=== PATIENT | female | born 1990 | race Caucasian/White ===

== ENCOUNTER 2022-07-12 10:56 | Outpatient (CLI) | payer MEDICAID, SELFPAY ==
--- NOTE | 2022-07-12 11:07 | US_ITS ---
WS: [id number] OBSTETRICAL ULTRASOUND COMPLETE HISTORY: NORMAL 1ST PREG IN 2ND TRIMESTER COMPARISON: None available. Single intrauterine gestation in Cephalic presentation. Cervix is Closed and normal length. Cervical length is 5.7 cm. Normal amount of amniotic fluid surrounds the fetus. Placenta: Anterior, no previa or abruption. Placenta grade 1 Heart: 141 BPM. Four chambers are identified. RIGHT and LEFT outflow tracts are unremarkable. Anatomy: Intracranial structures and spine are normal. kidneys, stomach and urinary bladd er are unremarkable. Abdominal wall, three-vessel cord and cord insertion site are normal. 4 extremities are present. profile: Unremarkable. Gender: Female. measurements: BPD = 4.8 cm = 20w4d; HC = 19.0 cm = 21w2d; AC = 16.0 cm = 21w1d; FL = 3.2 cm = 20w0d; EFW: 371 g. Not available. Biometry is internally concordant. AGA by ultrasound: 20w5d YOUSUF by ultrasound: 11/24/2022 US/US OB >= 14 weeks fetus [id number] IMPRESSION: 1. Single intrauterine gestation of 20w5d with an YOUSUF of 11/24/2022. 2. Unremarkable screening survey of anatomy.
== END 2022-07-12 10:57 | disposition home or self-care (01) ==
LOC: RAD 10:59
PROVIDERS: PCP Family Medicine; Visit Provider Family Medicine
DX: Z34.02 Encounter for supervision of normal first pregnancy, second trimester (principal); Z3A.20 20 weeks gestation of pregnancy
CPT/HCPCS: 76805

== ENCOUNTER 2022-10-03 11:30 | Outpatient (CLI) | payer MEDICAID, SELFPAY ==
[2022-10-03] VITALS (8 sets, daily range): BP systolic 126–141; BP diastolic 68–72; PULSE 99–113; RESP 18; TEMP 35.7–36.6; O2SAT 97–99; BMI 31.6
== END 2022-10-03 12:15 | disposition home or self-care (01) ==
LOC: OPOB 11:34 → OBGYN 11:35
PROVIDERS: PCP Family Medicine; Visit Provider Family Medicine
DX: O26.899 Other specified pregnancy related conditions, unspecified trimester (principal); R25.2 Cramp and spasm; Z3A.00 Weeks of gestation of pregnancy not specified
CPT/HCPCS: 59025; 99211

== ENCOUNTER 2022-11-15 13:00 | Inpatient (IN) | payer MEDICAID, SELFPAY ==
[2022-11-15] VITALS (61 sets, daily range): BP systolic 100–150; BP diastolic 54–85; PULSE 71–147; RESP 15–17; TEMP 36.8–37; O2SAT 89–100; BMI 31.4
[2022-11-15 12:39] LABS: Basophils % 0.2 %; Eosinophils % 0.4 %; Hematocrit 39.4 % (37.0-47.0); Hemoglobin 12.6 g/dL (11.5-15.3); Lymphocytes # 1.5 10^3/uL (0.8-4.8); Lymphocytes % 14.2 %; Mean Corpuscular Hemoglobin 28.3 pg (28.0-34.0); Mean Corpuscular Volume 88.3 fl (81-99); Mean Platelet Volume 13.3 fL (7.4-10.4); Monocytes # 0.6 10^3/uL (0.2-0.9); Monocytes % 5.9 %; Neutrophils # 8.42 10^3/uL (1.8-7.7); Neutrophils % 78.6 %; Nucleated Red Blood Cells % 0 %; Platelet Count 211 10^3/cmm (130-400); Red Blood Count 4.46 10^6/uL (4.1-5.3); Red Cell Distribution Width 14.1 % (12.1-15.1); White Blood Count 10.7 10^3/uL (4.0-10.0)
[2022-11-15 12:59] LABS: Slide Review Slide Review Perform
[2022-11-15] MEDS: ondansetron 2 mg/ML SDV 2 mL 4 MG IVP (14:11)
[2022-11-15] MEDS: lactated ringers 1,000 ML 999 ML IV (14:11)
--- NOTE | 2022-11-15 16:24 | ANES.PREANE2 ---
Pre-Anesthetic Assessment Height/Weight: Height 1.73 m Weight 93.894 kg Temp Pulse Resp BP Pulse Ox O2 Del Method 98.6 F 80 17 134/63 100 Room Air 11/15/22 11:56 11/15/22 16:21 11/15/22 11:54 11/15/22 16:21 11/15/22 16:18 11/15/22 11:54 Familial anesthetic complications: none Was Beta Radhika taken within 24 hours: N/A Was Clonidine taken within 24 hours: N/A Social No alcohol and No tobacco Exam alert, oriented x 3, clear to auscultation bilaterally and regular rate & rhythm Airway Submandibular: within normal limits Cervical ROM: within normal limits Mallampati: Class II Dentition: full Anesthetic Plan ASA status: 2 Anesthesia: Regional (specify below) (Labor epidural) Other: Medications/Allergies Home Medications Medication Instructions Recorded Confirmed Last Taken Type prenat.vits,ole,wix-kflg-bbfre 1 tab PO DAILY 11/15/22 11/15/22 Unknown History Allergies Allergy/AdvReac Type Severity Reaction Status Date / Time adhesive tape Allergy ALGY-Rash Verified 11/15/22 12:01 Penicillins Allergy ALGY-Rash Verified 11/15/22 12:01 prochlorperazine Allergy ALGY-Swell Verified 11/15/22 12:01 [From Compazine] Lip/Tongue/Throat Current Medications Generic Name Dose Route Start Last Admin Trade Name Freq PRN Reason Stop Dose Admin Lactated Ringer's 1,000 mls @ 999 mls/hr 11/15/22 11:54 11/15/22 14:11 Lactated Ringers IV 999 mls/hr .Q1H1M PRN Administration Per L&D Rescitation Protocol Ondansetron HCl 4 mg 11/15/22 11:54 11/15/22 14:11 Ondansetron 2 Mg/Ml Sdv 2 Ml IVP 4 mg Q4H PRN Administration NAUSEA AND VOMITING PFSH Anesthesia Female Reproductive History : 7 Data Anesthesia 11/15/22 12:05 Short CBC 11/15/22 Range/Units 12:05 WBC 10.7 H (4.0-10.0) 10^3/uL Hgb 12.6 (11.5-15.3) g/dL Hct 39.4 (37.0-47.0) % MCV 88.3 (81-99) fl Plt Count 211 (130-400) 10^3/cmm Neut % (Auto) 78.6 % Neut # (Auto) 8.42 H (1.8-7.7) 10^3/uL Cardiac Studies: No Data to Display Anesthesia Procedures Epidural Time Out Performed: Yes Consents Signed: Procedure Consent Consent: requested by attending/covering physician, from patient, risks and benefits reviewed and patient agrees to proceed Lumbar Level: L3-L4 Epidural position: sitting Epidural procedure: sterile prep of area, 1% lidocaine to numb the area, 18 g needle, neg for paresthesia, test dose given, 1.5% xylocaine 1:200k epi, 0.2% Ropivacaine bolus ml (5), placed PCEA, no systemic response, sterile dressing applied and 0.2% Ropiavacaine @ mls/hr (10) Additional Comments: JAMA at 5cm, cath at 10cm
--- NOTE | 2022-11-15 16:43 | PM.MISC ---
Miscellaneous Note Purpose of Documentation: Epidural Bolus Note: Epidural bolused with 100mcg of fentanyl.
--- NOTE | 2022-11-15 17:09 | P.HP_ITS ---
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 The rupture of membranes occurred shortly before arriving at the hospital while being checked in the office. She presented to the hospital began having contractions. She had an unremarkable labor and delivery. The patient is expressed a desire to have a tubal ligation and signed a consent form in my office earlier in the . We discussed the risks and alternatives. We discussed the risks of bleeding, infection, and damage to intra-abdominal organs. We discussed the 1-200 chance of getting again after her tubal ligation. We discussed the increased risk of an ectopic post tubal ligation. Present Details : 7 Para: 4 Labs Rubella: Immune RPR: Negative GBS: Negative Review of Systems General: Reports: 10 or more systems reviewed and unremarkable except in HPI and below Const: Reports: fatigue; Denies: fever(s) Eyes: Denies: change in vision Card: Denies: chest pain Musc: Reports: back pain Kyle/Lymph: Denies: easy bruising Medications/Allergies Home Medications Medication Instructions Recorded Confirmed Last Taken Type prenat.vits,ole,exn-xfjd-ocejf 1 tab PO DAILY 11/15/22 11/15/22 Unknown History Allergies Allergy/AdvReac Type Severity Reaction Status Date / Time adhesive tape Allergy ALGY-Rash Verified 11/15/22 12:01 Penicillins Allergy ALGY-Rash Verified 11/15/22 12:01 prochlorperazine Allergy ALGY-Swell Verified 11/15/22 12:01 [From Compazine] Lip/Tongue/Throat 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 PFSH: Surgical History (Updated 11/15/22 @ 17:12 by Hal Lopez MD) Previous section Vitals/I&O/Wt Last Vital Signs Temp 98.6 F 11/15/22 11:56 Pulse 94 11/15/22 17:00 Resp 17 11/15/22 11:54 BP 116/57 11/15/22 17:00 Pulse Ox 90 11/15/22 16:40 O2 Del Method Room Air 11/15/22 11:54 Weight last 48 hrs Weight 207 lb Physical Exam Const: COMMON NORMALS: patient oriented x3 and alert HENMT: COMMON NORMALS: moist oral mucous membranes HEAD & SCALP: normal to inspection Chest: COMMONS NORMALS: normal inspection of the chest Resp: COMMON NORMALS: clear to auscultation bilaterally AUSCULTATION: clear to auscultation bilaterally Cardio: COMMON NORMALS: regular rate and regular rhythm RATE: regular rate RHYTHM: regular rhythm GI: INSPECTION: Yes normal to inspection and Yes other (Gravid) Extremity: COMMON NORMALS: normal to inspection GENERAL: Yes edema (Trace) Neuro: COMMON NORMALS: patient oriented x3, moves all extremities and no sensory deficits noted SENSORIUM/ORIENTATION: Yes alert Psych: COMMON NORMALS: mental status grossly normal Skin: COMMON NORMALS: no rashes or lesions noted GENERAL SKIN EXAM: no rashes or lesions noted Data 11/16/22 04:15 A&P Assessment and plan (1) 38 weeks gestation of : (2) (vaginal after ): I anticipate routine care (3) Sterilization: The patient once again expressed a desire to have a tubal ligation performed. We will coordinate the tube ligation with anesthesia in the OR. Attestations Medical Necessity Statement*: I anticipate routine and post tubal care. Coding Level of Care Code Acute Code for Chg Fwd Diagnoses 38 weeks gestation of Z3A.38 (vaginal after ) O34.219 Sterilization Z30.2
--- NOTE | 2022-11-15 17:14 | PM.DELIVERY ---
Delivery Note: Date of delivery: November 15, 2022 Pre-delivery diagnoses: 1. 32-year-old 7 para 4 at 38 weeks estimated gestational age 2. History of desiring 3. Spontaneous rupture of membranes Post-delivery diagnoses: Status post Procedure: Delivering Physician: Hal Lopez Estimated blood loss (mL): 100 Delivery: DELIVERY: The patient progressed to complete without difficulty. She delivered a female with a weight of 7 pounds 8 ounces with Apgars of 9, 9. The baby was delivered from the LENNOX position and placed on the mother's abdomen. The cord was then clamped and cut. There was a nuchal cord x1 which was easily reduced prior to delivering the shoulders. there was no meconium. The placenta and 3 vessel cord were delivered intact shortly thereafter. The perineum and vaginal vault were carefully examined. No lacerations were noted. Both the mother and the baby were in stable condition. Post-Delivery Status: Good A&P Assessment and plan (1) (vaginal after ): I anticipate routine care. The patient desires a tubal ligation. We will contact anesthesia and or to see we can best schedule that while in the hospital. (2) 38 weeks gestation of : (3) Spontaneous rupture of amniotic membranes: Coding Level of Care Code Acute Code for Chg Fwd Diagnoses (vaginal after ) O34.219 38 weeks gestation of Z3A.38 Spontaneous rupture of amniotic membranes
[2022-11-15] MEDS: ibuprofen 800 mg tablet PO (21:06)
[2022-11-16] VITALS (17 sets, daily range): BP systolic 98–131; BP diastolic 53–83; PULSE 65–92; RESP 14–18; TEMP 36.4–36.6; O2SAT 95–99
[2022-11-16 04:24] LABS: Hematocrit 32.5 % (37.0-47.0); Hemoglobin 10.4 g/dL (11.5-15.3); Mean Corpuscular Hemoglobin 28.4 pg (28.0-34.0); Mean Corpuscular Volume 88.8 fl (81-99); Mean Platelet Volume 12.9 fL (7.4-10.4); Platelet Count 177 10^3/cmm (130-400); Red Blood Count 3.66 10^6/uL (4.1-5.3); Red Cell Distribution Width 14.3 % (12.1-15.1); White Blood Count 11.4 10^3/uL (4.0-10.0)
[2022-11-16] MEDS: lactated ringers 1,000 ML 999 ML IV (06:25)
--- NOTE | 2022-11-16 06:40 | PM.OBGYDC ---
Discharge Providers [employer] Date of Admission: 11/15/22 13:00 Date of Discharge: 11/16/22 Attending Provider at Admission: Hal Lopez MD Attending Provider at Discharge: Hal Lopez MD Primary Care Provider: Hal Lopez MD Diagnoses at Discharge Discharge Diagnosis (1) 38 weeks gestation of : Status: Acute (2) (vaginal after ): Status: Acute (3) Sterilization: Status: Acute Reason for Visit Reason for Visit: rupture of membranes Hospital Course Hospital Course The patient presented to the hospital with rupture of membranes. She then progressed to complete and had an unremarkable . Her course was unremarkable. She breast-fed well. Her bleeding was within normal limits. Her pain was well controlled. The following morning she had a tubal ligation performed. It also was unremarkable. There were no concerns. Information Peripartum Data: Infant Delivery Method: Vaginal Physical Exam Narrative: The patient is alert. She appears comfortable. Her heart has a regular rate and rhythm with no murmurs appreciated. Lungs are clear to auscultation bilaterally. Her fundus is firm and below the umbilicus. Discharge Data Studies Completed and Pending Laboratory Results WBC 11.4 10^3/uL (4.0-10.0) H 11/16/22 04:15 RBC 3.66 10^6/uL (4.1-5.3) L 11/16/22 04:15 Hgb 10.4 g/dL (11.5-15.3) L 11/16/22 04:15 Hct 32.5 % (37.0-47.0) L 11/16/22 04:15 MCV 88.8 fl (81-99) 11/16/22 04:15 MCH 28.4 pg (28.0-34.0) 11/16/22 04:15 MCHC 32.0 g/dL (30.0-36.0) 11/16/22 04:15 RDW 14.3 % (12.1-15.1) 11/16/22 04:15 Plt Count 177 10^3/cmm (130-400) 11/16/22 04:15 MPV 12.9 fL (7.4-10.4) H 11/16/22 04:15 Neut % (Auto) 78.6 % 11/15/22 12:05 Lymph % (Auto) 14.2 % 11/15/22 12:05 [place] % (Auto) 5.9 % 11/15/22 12:05 Eos % (Auto) 0.4 % 11/15/22 12:05 Baso % (Auto) 0.2 % 11/15/22 12:05 Neut # (Auto) 8.42 10^3/uL (1.8-7.7) H 11/15/22 12:05 Lymph # (Auto) 1.5 10^3/uL (0.8-4.8) 11/15/22 12:05 [place] # (Auto) 0.6 10^3/uL (0.2-0.9) 11/15/22 12:05 Eos # (Auto) 0.0 10^3/uL (0.0-0.8) 11/15/22 12:05 Baso # (Auto) 0.0 10^3/uL (0.0-0.1) 11/15/22 12:05 Nucleated RBC % (auto) 0 % 11/15/22 12:05 Nucleated RBCs # 0.0 /100WBC 11/15/22 12:05 Vitals Last Vital Signs Temp 97.9 F 11/16/22 02:45 Pulse 84 11/16/22 02:45 Resp 16 11/16/22 02:45 BP 107/69 11/16/22 02:45 Pulse Ox 90 11/15/22 16:40 O2 Del Method Room Air 11/15/22 11:54 Discharge Plan Discharge Patient Disposition: Home Condition: Stable Prescriptions: New ibuprofen 800 mg Tablet 800 mg PO TID Qty: 45 0RF hydrocodone-acetaminophen 5-325 mg Tablet 1 tab PO Q6H PRN (Reason: Moderate To Severe Pain) Qty: 10 0RF Continued prenat.vits,ole,ajl-bteg-bxjbt Tablet 1 tab PO DAILY Discharge Orders: Discharge Order (Routine); Ordered 11/16/22 Ordered By: Hal Lopez Referrals: Hal Lopez MD [Primary Care Provider] - 2 weeks Discharge Diet: Usual diet Discharge Activity: Limit activity as instructed Patient Instructions: Opioid Safety Discharge Attestations [employer]READ W[employer]ER Time Spent in Discharge Care*: less than 30 min Coding Level of Care Code Acute Code for Chg Fwd Diagnoses 38 weeks gestation of Z3A.38 (vaginal after ) O34.219 Sterilization Z30.2
[2022-11-16] MEDS: famotidine 20 mg/2 mL INJ IVP (06:47)
[2022-11-16] MEDS: metoclopramide 5 mg/mL SDV 2 mL 10 MG IVP (06:47)
[2022-11-16] MEDS: citric acid-sodium citrate 30 mL UDC PO (06:47)
--- NOTE | 2022-11-16 07:52 | P.OP_ITS ---
Operative Report Date of procedure: November 16, 2022 Pre-op diagnosis: multigravida female desiring sterilization Post-op diagnosis: Status post mini laparotomy bilateral tubal ligation. Procedure done: minilaparotomy bilateral tubal ligation using modified [place] technique Specimens removed/disposition: Bilateral fallopian tube segment Pathology: Bilateral fallopian tube segments with the right segment being tagged Surgeon: Hal Lopez Estimated blood loss (mL): 5 Complications: None Brief History: See history and physical Procedure: The patient was brought back to the operating room where anesthesia was found to be adequate. 10 mL of 0.5% bupivacaine was then used to pre-anesthetize the area just inferior to the umbilicus. A #15 blade was then used to make a 3 cm transverse incision just inferior to the umbilicus. I then dissected down to the underlying subcutaneous tissue until arriving at the fascia. The fascia was then nicked with the scalpel. The fascial incision was extended manually. I identified the fundus of the uterus and followed it to the left fallopian tube. The fallopian tube was then followed to the fimbria. The tube was then ligated, cut, and cauterized in a modified [place] fashion using 0 chromic. The right fallopian tube was then identified and followed through to the fimbria. It was ligated, cut, and cauterized in similar fashion. The right fallopian tube was tagged. Both fallopian tubes had excellent hemostasis. The fascia was reapproximated using 0 Vicryl in running stitch. The subcutaneous tissue was carefully examined and no further bleeding was noted. The skin was then reapproximated using 4-0 Vicryl in a running subcuticular stitch. A sterile dressing was placed. All counts were correct x2. The patient was moved to the recovery room in stable condition.
--- NOTE | 2022-11-16 08:34 | ANES.PAUD2 ---
Pre-Anesthetic Update Pre-Anesthetic Assessment: Date of Surgery/Procedure: 11/16/22 Proposed Procedure: Operation Date: 11/16/22 07:10 Proposed Procedures p Post Bilateral Tubal Ligation(Bilateral) - Hal Lopez MD Any changes to Pre-Anesthetic Assessment?: Yes Changes from Pre-Anesthetic Assessment: Now requesting BTL. Labs Last 48hrs: Short CBC 11/15/22 11/16/22 Range/Units 12:05 04:15 WBC 10.7 H 11.4 H (4.0-10.0) 10^3/ uL Hgb 12.6 10.4 L (11.5-15.3) g/dL Hct 39.4 32.5 L (37.0-47.0) % MCV 88.3 88.8 (81-99) fl Plt Count 211 177 (130-400) 10^3/c mm Neut % (Auto) 78.6 % Neut # (Auto) 8.42 H (1.8-7.7) 10^3/u L Vitals: Temperature 97.9 F 11/16/22 02:45 Temperature Source Oral 11/16/22 02:45 Pulse Rate 84 11/16/22 02:45 Pulse Rhythm Regular 11/15/22 11:54 Respiratory Rate 16 11/16/22 02:45 Respiratory Effort Spontaneous, Non- Labored 11/15/22 11:54 Respiratory Depth Normal 11/15/22 11:54 Respiratory Patter n Normal 11/15/22 11:54 Blood Pressure 107/69 11/16/22 02:45 Blood Pressure Lore n 81 11/16/22 02:45 Pulse Oximetry 90 11/15/22 16:40 Oxygen Delivery Me thod Room Air 11/15/22 11:54 Exam: Pre-Anes Outpt Exam: alert, oriented x 3, clear to auscultation bilaterally and regular rate & rhythm Other Pertinent Information: Other Pertinent Information: Plan SAB or GETA. ASA II Cardiac Studies: No Data to Display
--- NOTE | 2022-11-16 08:35 | ANE.PACU2 ---
Inpatient post-anesthesia follow up: Airway intact: Yes Vital signs: Temperature 97.9 F Pulse Rate 84 Respiratory Rate 16 Blood Pressure 107/69 Pulse Oximetry 90 Oxygen Delivery Me thod Room Air Oxygen Flow Rate Fraction of Inspir ed Oxygen Hydration adequate: Yes Nausea and vomiting: No Pain level: 2 Mental status: Baseline
--- NOTE | 2022-11-16 08:56 | PC.NURSE ---
pt in recovery room at this time
[2022-11-16] MEDS: ibuprofen 800 mg tablet PO ×2 (09:29→15:41)
[2022-11-16] MEDS: docusate sodium 100 mg Capsule PO (09:29)
[2022-11-16] MEDS: prenatal vitamin Capsule 1 CAP PO (09:30)
== END 2022-11-16 18:13 | disposition home or self-care (01) | DRG 798 ==
LOC: OPOB 17:12 → OBGYN 17:12
PROVIDERS: Admitting Provider Family Medicine; PCP Family Medicine; Visit Provider Family Medicine
PROC: 0UB70ZZ Excision of Bilateral Fallopian Tubes, Open Approach (ICD-10-PCS; CPT 58605; principal; 2022-11-16 07:00)
DX: O34.219 Maternal care for unspecified type scar from previous cesarean delivery (principal); Z37.0 Single live birth; Z3A.38 38 weeks gestation of pregnancy; O69.2XX0 Labor and delivery complicated by other cord entanglement, with compression, not applicable or unspecified; Z30.2 Encounter for sterilization
CPT/HCPCS: 36415; 59025; 59409; 85025; 85027; 88302; 96374; 96376; J1170; J2274; J2405; J2704; J2765; J2795; J3010; J3490; J7120